=== PATIENT | male | born 1945 | race Caucasian/White ===

== ENCOUNTER 2021-09-16 05:13 | Inpatient (IN) ==
[2021-09-16] MEDS ORDERED: propofoL 200 MG/20 ML VIAL IV ONE (05:51)
[2021-09-16] MEDS ORDERED: LIDOCAINE 2% 5 ML VIAL ONE (05:51)
[2021-09-16] MEDS ORDERED: ONDANSETRON 4 MG/2 ML VIAL ONE (05:51)
[2021-09-16] MEDS ORDERED: MIDAZOLAM 2 MG/2 ML VIAL ONE (05:51)
[2021-09-16] MEDS ORDERED: fentaNYL 100 MCG/2 ML VIAL ONE ×3 (05:51→12:30)
[2021-09-16] MEDS ORDERED: ROCURONIUM 50 MG/5 ML VIAL IV ONE ×3 (05:58→10:12)
[2021-09-16] MEDS ORDERED: SEVOFLURANE 1 UNIT/15 MINUTE INH ONE ×10 (05:58→12:28)
[2021-09-16] MEDS ORDERED: cefTRIAXone 1,000 MG in SODIUM CHLORIDE 0.9% 100 ML IV ONE (06:00)
[2021-09-16] MEDS ORDERED: SODIUM PHOSPHATE ENEMA 133 ML BOTTLE RECTAL ONE (06:00)
[2021-09-16] MEDS ORDERED: ALVIMOPAN 12 MG CAPSULE PO ONE (06:00)
[2021-09-16] MEDS ORDERED: LACTATED RINGERS 1,000 ML IV SCH (07:00)
[2021-09-16] MEDS ORDERED: ALBUTEROL 2.5 MG/3 ML NEB RESP TX ONE (07:34)
[2021-09-16] MEDS ORDERED: FAMOTIDINE 20 MG/2 ML VIAL IV ONE (07:34)
[2021-09-16] MEDS ORDERED: ePHEDrine 50 MG/ML VIAL ONE (08:07)
[2021-09-16 08:35] LABS: Bacteria,Urine Occasional /HPF (Few); Bilirubin,Urine Negative (Negative); Blood, Urine Small mg/dL (Negative); Glucose,Urine (UA) Negative (Negative); Ketones,Urine Negative (Negative); Mucus,Urine Occasional /LPF (Occasional); Nitrite,Urine Negative (Negative); Protein,Urine Negative; RBC,Urine 9 /HPF (0-4); Squamous Epithelial Cell,Urine Occasional /HPF (0-10); Urine Appearance CLEAR (Clear); Urine Color Yellow (Yellow); Urine Specific Gravity 1.018 (1.001-1.035); Urine Urobilinogen < 2.0 EU/DL (<2.0)
[2021-09-16] MEDS ORDERED: ACETAMINOPHEN INJ 1,000 MG/100 ML VIAL IV ONE (09:40)
[2021-09-16] MEDS ORDERED: SUCCINYLCHOLINE 200 MG/10 ML VIAL ONE (09:40)
[2021-09-16] MEDS ORDERED: HYDROCORTISONE 100 MG VIAL ONE (09:40)
[2021-09-16] MEDS ORDERED: PHENYLEPHRINE 1 MG/10 ML SYRINGE IV ONE ×3 (09:41→12:28)
[2021-09-16] MEDS ORDERED: LACTATED RINGERS 1,000 ML IV ONE (10:37)
[2021-09-16] MEDS ORDERED: NEOSTIGMINE 10 MG/10 ML VIAL ONE (12:13)
[2021-09-16] MEDS ORDERED: ONDANSETRON 4 MG/2 ML VIAL IV PRN (12:26)
[2021-09-16] MEDS ORDERED: oxyCODONE/ACETAMINOPHEN 5-325 MG TABLET PO PRN (12:26)
[2021-09-16] MEDS ORDERED: SODIUM CHLORIDE 0.9% 1,000 ML IV SCH (12:30)
[2021-09-16] MEDS ORDERED: HYDROmorphone 2 MG/1 ML VIAL IV PRN (12:32)
[2021-09-16] MEDS: CARBIDOPA/LEVODOPA 25-100 MG TABLET PO SCH ×2 (15:07→18:24)
[2021-09-16] MEDS: OXYBUTYNIN XL 10 MG TABLET PO SCH (15:07)
[2021-09-16] MEDS ORDERED: SODIUM CHLORIDE 0.9% 1,000 ML IV ONE (17:30)
[2021-09-16] MEDS: CALCIUM (CARBONATE)/VITAMIN D 600 MG-400 UNIT TABLET PO SCH (18:24)
[2021-09-16] MEDS: Glycopyrrolate-Formoterol [Bevespi Aerosphere] 9-4.8 mcg Hfa Aer INH SCH (20:54)
[2021-09-16] MEDS: MONTELUKAST 10 MG TABLET PO SCH (20:54)
[2021-09-16] MEDS: ALVIMOPAN 12 MG CAPSULE PO SCH (20:54)
[2021-09-16] MEDS: SODIUM CHLORIDE 0.9% 1,000 ML IV SCH (22:10)
[2021-09-17 05:32] LABS: Basophils % 0.2 % (0.0-0.8); Hematocrit 36.6 VOL% (42.0-52.0); Hemoglobin 11.9 GM/DL (14.0-18.0); Immature Granulocytes % 0.4 %; Immature Granulocytes Absolute 0.05 #; Lymphocytes # 0.8 10*3/uL (1.4-4.0); Lymphocytes % 6.9 % (21.2-54.2); Mean Corpuscular HGB Conc 32.5 GM/DL (32-36); Mean Corpuscular Volume 106.4 FL (87-102); Mean Platelet Volume 10.4 FL (9.6-12.0); Monocytes % 10.2 % (1.7-12.7); Neutrophils % 82.3 % (38.7-73.9); Platelet Count 244 T/CUMM (130-400); Red Blood Count 3.44 MC/CUMM (3.8-5.5); Red Cell Distribution Width 12.7 % (9.3-17.3); White Blood Count 11.9 T/CUMM (4-12)
[2021-09-17] MEDS: LEVOTHYROXINE 75 MCG TABLET PO SCH (05:33)
[2021-09-17 05:44] LABS: Albumin 3.1 G/DL (3.4-5.0); Osmolality,Calculated 285.4 MOS/KG (273-304); Potassium 5.1 MMOL/L (3.5-5.1)
[2021-09-17 06:19] LABS: Band Neutrophils 6 % (0-10); Lymphocytes 5 % (20-55); Segmented Neutrophils 82 % (50-85); Total Cells Counted 100
[2021-09-17 06:20] LABS: Microcytosis 1+; Platelet Estimate Normal
[2021-09-17] MEDS ORDERED: predniSONE 5 MG TABLET PO SCH (09:00)
[2021-09-17] MEDS: OXYBUTYNIN XL 10 MG TABLET PO SCH (10:40)
[2021-09-17] MEDS: amLODIPine 5 MG TABLET PO SCH (10:40)
[2021-09-17] MEDS: ALVIMOPAN 12 MG CAPSULE PO SCH ×2 (10:40→21:38)
[2021-09-17] MEDS: CARBIDOPA/LEVODOPA 25-100 MG TABLET PO SCH ×3 (10:41→21:38)
[2021-09-17] MEDS: CALCIUM (CARBONATE)/VITAMIN D 600 MG-400 UNIT TABLET PO SCH ×2 (10:41→17:33)
[2021-09-17] MEDS: Glycopyrrolate-Formoterol [Bevespi Aerosphere] 9-4.8 mcg Hfa Aer INH SCH ×2 (10:52→21:40)
[2021-09-17] MEDS: RASAGILINE 0.5 MG TABLET PO SCH (10:57)
[2021-09-17] MEDS: ALBUTEROL/IPRATROPIUM 3 ML NEB RESP TX SCH ×4 (13:35→23:41)
[2021-09-17] MEDS: SODIUM CHLORIDE 0.9% 1,000 ML IV SCH ×2 (18:41→18:42)
[2021-09-17 21:28] LABS: Albumin 2.8 G/DL (3.4-5.0); Calcium 7.4 MG/DL (8.5-10.1); Osmolality,Calculated 293.1 MOS/KG (273-304); Potassium 5.4 MMOL/L (3.5-5.1)
[2021-09-17] MEDS: MONTELUKAST 10 MG TABLET PO SCH (21:38)
[2021-09-17] MEDS: SIMVASTATIN 20 MG TABLET PO SCH (21:38)
[2021-09-17] MEDS ORDERED: LORazepam 2 MG/1 ML VIAL IM PRN (23:15)
[2021-09-17] MEDS ORDERED: cefTRIAXone 1,000 MG in SODIUM CHLORIDE 0.9% 100 ML IV ONE (23:20)
[2021-09-18] MEDS: ACETAMINOPHEN 325 MG TABLET PO PRN (05:00)
[2021-09-18] MEDS: LEVOTHYROXINE 75 MCG TABLET PO SCH (05:29)
[2021-09-18 05:48] LABS: Osmolality,Calculated 286.7 MOS/KG (273-304); Potassium 4.7 MMOL/L (3.5-5.1)
[2021-09-18 05:50] LABS: Calcium 7.9 MG/DL (8.5-10.1); Osmolality,Calculated 288.5 MOS/KG (273-304); Potassium 4.8 MMOL/L (3.5-5.1)
[2021-09-18] MEDS: ALBUTEROL/IPRATROPIUM 3 ML NEB RESP TX SCH ×3 (07:20→19:53)
[2021-09-18] MEDS ORDERED: methylPREDNISolone SOD SUC 40 MG/1 ML VIAL IV ONE (08:30)
[2021-09-18] MEDS: ALVIMOPAN 12 MG CAPSULE PO SCH ×2 (10:01→21:37)
[2021-09-18] MEDS: chlordiazePOXIDE 10 MG CAPSULE PO SCH ×3 (10:01→21:37)
[2021-09-18] MEDS: OXYBUTYNIN XL 10 MG TABLET PO SCH (10:02)
[2021-09-18] MEDS: amLODIPine 5 MG TABLET PO SCH (10:02)
[2021-09-18] MEDS: CARBIDOPA/LEVODOPA 25-100 MG TABLET PO SCH ×3 (10:02→21:38)
[2021-09-18] MEDS: QUEtiapine 25 MG TABLET PO SCH ×2 (10:02→21:38)
[2021-09-18] MEDS: methylPREDNISolone SOD SUC 40 MG/1 ML VIAL IV SCH ×2 (10:02→21:40)
[2021-09-18] MEDS: CALCIUM (CARBONATE)/VITAMIN D 600 MG-400 UNIT TABLET PO SCH ×2 (10:02→18:38)
[2021-09-18] MEDS: RASAGILINE 0.5 MG TABLET PO SCH (10:03)
[2021-09-18] MEDS: cefTRIAXone 1,000 MG in SODIUM CHLORIDE 0.9% 100 ML IV SCH (10:03)
[2021-09-18] MEDS: Glycopyrrolate-Formoterol [Bevespi Aerosphere] 9-4.8 mcg Hfa Aer INH SCH ×2 (10:04→21:45)
[2021-09-18] MEDS ORDERED: INSULIN REGULAR 10 UNIT, CALCIUM GLUCONATE 1,000 MG in DEXTROSE 10% 250 ML IV PRN (13:47)
[2021-09-18] MEDS: SODIUM BICARB INJ 50 MEQ in SODIUM CHLORIDE 0.45% 1,000 ML IV SCH (18:39)
[2021-09-18] MEDS: SIMVASTATIN 20 MG TABLET PO SCH (21:38)
[2021-09-18] MEDS: MONTELUKAST 10 MG TABLET PO SCH (21:38)
[2021-09-19] MEDS: ALBUTEROL/IPRATROPIUM 3 ML NEB RESP TX SCH ×4 (00:52→19:00)
[2021-09-19 06:03] LABS: Hemoglobin 8.9 GM/DL (14.0-18.0); Immature Granulocytes % 0.9 %; Immature Granulocytes Absolute 0.09 #; Lymphocytes # 0.3 10*3/uL (1.4-4.0); Lymphocytes % 2.4 % (21.2-54.2); Mean Corpuscular HGB Conc 31.8 GM/DL (32-36); Mean Corpuscular Volume 108.5 FL (87-102); Mean Platelet Volume 10.4 FL (9.6-12.0); Monocytes % 5.4 % (1.7-12.7); Neutrophils % 91.3 % (38.7-73.9); Platelet Count 185 T/CUMM (130-400); Red Blood Count 2.58 MC/CUMM (3.8-5.5); Red Cell Distribution Width 12.8 % (9.3-17.3); White Blood Count 10.4 T/CUMM (4-12)
[2021-09-19 06:13] LABS: Alanine Aminotransferase < 6 U/L (16-61); Albumin 2.4 G/DL (3.4-5.0); Alkaline Phosphatase 48 U/L (45-117); Aspartate Amino Transferase 46 U/L (0-37); Bilirubin,Total < 0.39 MG/DL (0.20-1.00); Blood Urea Nitrogen 40 MG/DL (7-18); Calcium 8.4 MG/DL (8.5-10.1); Carbon Dioxide 21 MMOL/L (21-32); Estimated Glom Filtration Rate 15 ML/MIN; Glucose 108 MG/DL (74-106); Osmolality,Calculated 287.5 MOS/KG (273-304); Potassium 4.8 MMOL/L (3.5-5.1); Sodium 139 MMOL/L (136-145); Total Protein 5.9 G/DL (6.4-8.2)
[2021-09-19 06:33] LABS: Band Neutrophils 9 % (0-10); Lymphocytes 2 % (20-55); Platelet Estimate Normal; Segmented Neutrophils 84 % (50-85); Total Cells Counted 100
[2021-09-19 06:34] LABS: Anisocytosis Slight; Macrocytosis Slight
[2021-09-19] MEDS: LEVOTHYROXINE 75 MCG TABLET PO SCH (07:35)
[2021-09-19] MEDS: SODIUM CHLORIDE 0.9% 1,000 ML IV SCH (07:59)
[2021-09-19] MEDS: ALVIMOPAN 12 MG CAPSULE PO SCH ×2 (09:42→21:28)
[2021-09-19] MEDS: chlordiazePOXIDE 10 MG CAPSULE PO SCH ×3 (09:42→21:28)
[2021-09-19] MEDS: OXYBUTYNIN XL 15 MG TABLET PO SCH (09:42)
[2021-09-19] MEDS: CALCIUM (CARBONATE)/VITAMIN D 600 MG-400 UNIT TABLET PO SCH ×2 (09:43→17:54)
[2021-09-19] MEDS: amLODIPine 5 MG TABLET PO SCH (09:43)
[2021-09-19] MEDS: CARBIDOPA/LEVODOPA 25-100 MG TABLET PO SCH ×3 (09:43→21:29)
[2021-09-19] MEDS: methylPREDNISolone SOD SUC 40 MG/1 ML VIAL IV SCH ×2 (09:52→21:29)
[2021-09-19] MEDS: Glycopyrrolate-Formoterol [Bevespi Aerosphere] 9-4.8 mcg Hfa Aer INH SCH ×2 (09:53→21:30)
[2021-09-19] MEDS: RASAGILINE 0.5 MG TABLET PO SCH (09:53)
[2021-09-19] MEDS: QUEtiapine 25 MG TABLET PO SCH ×2 (09:55→21:29)
[2021-09-19] MEDS: SODIUM BICARB INJ 50 MEQ in SODIUM CHLORIDE 0.45% 1,000 ML IV SCH (13:40)
[2021-09-19] MEDS: cefTRIAXone 1,000 MG in SODIUM CHLORIDE 0.9% 100 ML IV SCH (13:44)
[2021-09-19] MEDS: MONTELUKAST 10 MG TABLET PO SCH (21:28)
[2021-09-19] MEDS: SIMVASTATIN 20 MG TABLET PO SCH (21:29)
[2021-09-20] MEDS: ALBUTEROL/IPRATROPIUM 3 ML NEB RESP TX SCH ×4 (00:01→19:28)
[2021-09-20] MEDS: SODIUM BICARB INJ 50 MEQ in SODIUM CHLORIDE 0.45% 1,000 ML IV SCH (06:20)
[2021-09-20] MEDS: LEVOTHYROXINE 75 MCG TABLET PO SCH (06:20)
[2021-09-20 07:06] LABS: Hematocrit 27.1 VOL% (42.0-52.0); Hemoglobin 8.7 GM/DL (14.0-18.0); Immature Granulocytes % 0.8 %; Immature Granulocytes Absolute 0.07 #; Lymphocytes # 0.2 10*3/uL (1.4-4.0); Lymphocytes % 2.5 % (21.2-54.2); Mean Corpuscular HGB Conc 32.1 GM/DL (32-36); Mean Corpuscular Volume 106.7 FL (87-102); Mean Platelet Volume 9.8 FL (9.6-12.0); Monocytes % 4.6 % (1.7-12.7); Neutrophils % 92.1 % (38.7-73.9); Platelet Count 230 T/CUMM (130-400); Red Blood Count 2.54 MC/CUMM (3.8-5.5); Red Cell Distribution Width 12.7 % (9.3-17.3); White Blood Count 9.1 T/CUMM (4-12)
[2021-09-20 07:29] LABS: Osmolality,Calculated 289.5 MOS/KG (273-304); Potassium 4.5 MMOL/L (3.5-5.1)
[2021-09-20 07:57] LABS: Alanine Aminotransferase 9 U/L (16-61); Albumin 2.4 G/DL (3.4-5.0); Alkaline Phosphatase 61 U/L (45-117); Aspartate Amino Transferase 40 U/L (0-37); Bilirubin,Total < 0.39 MG/DL (0.20-1.00); Blood Urea Nitrogen 38 MG/DL (7-18); Calcium 8.6 MG/DL (8.5-10.1); Carbon Dioxide 25 MMOL/L (21-32); Estimated Glom Filtration Rate 22 ML/MIN; Glucose 162 MG/DL (74-106); Osmolality,Calculated 295.1 MOS/KG (273-304); Potassium 4.7 MMOL/L (3.5-5.1); Sodium 142 MMOL/L (136-145); Total Protein 6.2 G/DL (6.4-8.2)
[2021-09-20 08:31] LABS: Anisocytosis 1+; Band Neutrophils 11 % (0-10); Lymphocytes 1 % (20-55); Macrocytosis 1+; Platelet Estimate Normal; Segmented Neutrophils 85 % (50-85); Total Cells Counted 100
[2021-09-20] MEDS: amLODIPine 5 MG TABLET PO SCH (10:11)
[2021-09-20] MEDS: ALVIMOPAN 12 MG CAPSULE PO SCH ×2 (10:11→21:23)
[2021-09-20] MEDS: OXYBUTYNIN XL 15 MG TABLET PO SCH (10:11)
[2021-09-20] MEDS: CALCIUM (CARBONATE)/VITAMIN D 600 MG-400 UNIT TABLET PO SCH ×3 (10:11→17:42)
[2021-09-20] MEDS: CARBIDOPA/LEVODOPA 25-100 MG TABLET PO SCH ×3 (10:11→21:24)
[2021-09-20] MEDS: chlordiazePOXIDE 10 MG CAPSULE PO SCH ×3 (10:11→21:23)
[2021-09-20] MEDS: methylPREDNISolone SOD SUC 40 MG/1 ML VIAL IV SCH ×2 (10:12→21:24)
[2021-09-20] MEDS: RASAGILINE 0.5 MG TABLET PO SCH (10:13)
[2021-09-20] MEDS: cefTRIAXone 1,000 MG in SODIUM CHLORIDE 0.9% 100 ML IV SCH (10:14)
[2021-09-20] MEDS: QUEtiapine 25 MG TABLET PO SCH ×2 (10:14→21:24)
[2021-09-20] MEDS: Glycopyrrolate-Formoterol [Bevespi Aerosphere] 9-4.8 mcg Hfa Aer INH SCH ×2 (10:14→21:24)
[2021-09-20] MEDS: SODIUM CHLORIDE 0.45% 1,000 ML IV SCH (21:22)
[2021-09-20] MEDS: SIMVASTATIN 20 MG TABLET PO SCH (21:23)
[2021-09-20] MEDS: MONTELUKAST 10 MG TABLET PO SCH (21:23)
[2021-09-21] MEDS: ALBUTEROL/IPRATROPIUM 3 ML NEB RESP TX SCH ×4 (00:31→20:55)
[2021-09-21] MEDS: LEVOTHYROXINE 75 MCG TABLET PO SCH (06:20)
[2021-09-21 07:05] LABS: Calcium 8.9 MG/DL (8.5-10.1); Osmolality,Calculated 294.3 MOS/KG (273-304); Potassium 4.8 MMOL/L (3.5-5.1)
[2021-09-21] MEDS: SODIUM BICARB INJ 50 MEQ in SODIUM CHLORIDE 0.45% 1,000 ML IV SCH (07:47)
[2021-09-21] MEDS: OXYBUTYNIN XL 15 MG TABLET PO SCH (08:46)
[2021-09-21] MEDS: ALVIMOPAN 12 MG CAPSULE PO SCH ×2 (08:46→21:13)
[2021-09-21] MEDS: chlordiazePOXIDE 10 MG CAPSULE PO SCH ×3 (08:46→21:13)
[2021-09-21] MEDS: CALCIUM (CARBONATE)/VITAMIN D 600 MG-400 UNIT TABLET PO SCH ×2 (08:46→16:24)
[2021-09-21] MEDS: amLODIPine 5 MG TABLET PO SCH (08:46)
[2021-09-21] MEDS: QUEtiapine 25 MG TABLET PO SCH ×2 (08:46→21:14)
[2021-09-21] MEDS: SODIUM CHLORIDE 0.45% 1,000 ML IV SCH ×3 (08:46→21:21)
[2021-09-21] MEDS: methylPREDNISolone SOD SUC 40 MG/1 ML VIAL IV SCH ×2 (08:47→21:14)
[2021-09-21] MEDS: RASAGILINE 0.5 MG TABLET PO SCH (08:48)
[2021-09-21] MEDS: Glycopyrrolate-Formoterol [Bevespi Aerosphere] 9-4.8 mcg Hfa Aer INH SCH ×2 (08:49→21:14)
[2021-09-21] MEDS: cefTRIAXone 1,000 MG in SODIUM CHLORIDE 0.9% 100 ML IV SCH (08:49)
[2021-09-21 09:25] LABS: HIV Antigen/Antibody Result Nonreactive (Nonreactive); Hepatitis B Surface Ag Quant < 0.10 Index; Hepatitis B Surface Ag Result Non-Reactive (NonReactive); Hepatitis C Virus Ab Quant 0.09 Index; Hepatitis C Virus Ab Result Non-Reactive (NonReactive)
[2021-09-21] MEDS: CARBIDOPA/LEVODOPA 25-100 MG TABLET PO SCH ×3 (09:52→21:13)
[2021-09-21] MEDS: POLYETHYLENE GLYCOL POWDER 17 GM PACK PO SCH (10:58)
[2021-09-21] MEDS: SIMVASTATIN 20 MG TABLET PO SCH (21:13)
[2021-09-21] MEDS: MONTELUKAST 10 MG TABLET PO SCH (21:13)
[2021-09-22] MEDS: ALBUTEROL/IPRATROPIUM 3 ML NEB RESP TX SCH ×5 (02:22→19:56)
[2021-09-22] MEDS: LEVOTHYROXINE 75 MCG TABLET PO SCH (05:12)
[2021-09-22 05:56] LABS: Calcium 8.9 MG/DL (8.5-10.1); Osmolality,Calculated 296.3 MOS/KG (273-304); Potassium 4.9 MMOL/L (3.5-5.1)
[2021-09-22] MEDS: SODIUM CHLORIDE 0.45% 1,000 ML IV SCH ×3 (06:22→15:27)
[2021-09-22] MEDS: cefTRIAXone 1,000 MG in SODIUM CHLORIDE 0.9% 100 ML IV SCH (08:43)
[2021-09-22] MEDS: methylPREDNISolone SOD SUC 40 MG/1 ML VIAL IV SCH (08:44)
[2021-09-22] MEDS: OXYBUTYNIN XL 15 MG TABLET PO SCH (08:44)
[2021-09-22] MEDS: RASAGILINE 0.5 MG TABLET PO SCH (08:45)
[2021-09-22] MEDS: ALVIMOPAN 12 MG CAPSULE PO SCH ×2 (08:45→21:34)
[2021-09-22] MEDS: CALCIUM (CARBONATE)/VITAMIN D 600 MG-400 UNIT TABLET PO SCH ×2 (08:46→16:02)
[2021-09-22] MEDS: amLODIPine 5 MG TABLET PO SCH (08:46)
[2021-09-22] MEDS: CARBIDOPA/LEVODOPA 25-100 MG TABLET PO SCH ×5 (08:46→18:09)
[2021-09-22] MEDS: QUEtiapine 25 MG TABLET PO SCH (08:46)
[2021-09-22] MEDS: chlordiazePOXIDE 10 MG CAPSULE PO SCH ×2 (08:46→21:34)
[2021-09-22] MEDS: POLYETHYLENE GLYCOL POWDER 17 GM PACK PO SCH ×2 (08:47→21:34)
[2021-09-22] MEDS: Glycopyrrolate-Formoterol [Bevespi Aerosphere] 9-4.8 mcg Hfa Aer INH SCH ×2 (08:48→21:34)
[2021-09-22] MEDS ORDERED: BISACODYL 5 MG TABLET PO ONE (10:00)
[2021-09-22] MEDS: SIMVASTATIN 20 MG TABLET PO SCH (21:34)
[2021-09-22] MEDS: MONTELUKAST 10 MG TABLET PO SCH (21:34)
[2021-09-23] MEDS: ALBUTEROL/IPRATROPIUM 3 ML NEB RESP TX SCH ×4 (00:40→19:15)
[2021-09-23] MEDS: LEVOTHYROXINE 75 MCG TABLET PO SCH (05:39)
[2021-09-23] MEDS: SODIUM CHLORIDE 0.45% 1,000 ML IV SCH ×2 (05:39→20:52)
[2021-09-23 05:43] LABS: Basophils % 0.3 % (0.0-0.8); Hematocrit 28.5 VOL% (42.0-52.0); Hemoglobin 9.1 GM/DL (14.0-18.0); Immature Granulocytes % 2.4 %; Immature Granulocytes Absolute 0.25 #; Lymphocytes # 1.5 10*3/uL (1.4-4.0); Lymphocytes % 14.2 % (21.2-54.2); Mean Corpuscular HGB Conc 31.9 GM/DL (32-36); Mean Corpuscular Volume 107.5 FL (87-102); Mean Platelet Volume 10.1 FL (9.6-12.0); Monocytes % 11.8 % (1.7-12.7); NRBC # 0.02 10*3/uL; Neutrophils % 71.3 % (38.7-73.9); Platelet Count 299 T/CUMM (130-400); Red Blood Count 2.65 MC/CUMM (3.8-5.5); Red Cell Distribution Width 12.6 % (9.3-17.3); White Blood Count 10.2 T/CUMM (4-12)
[2021-09-23 06:02] LABS: Calcium 9.5 MG/DL (8.5-10.1); Osmolality,Calculated 288.4 MOS/KG (273-304); Potassium 4.1 MMOL/L (3.5-5.1)
[2021-09-23] MEDS ORDERED: BISACODYL 10 MG SUPP RECTAL ONE (07:45)
[2021-09-23] MEDS ORDERED: methylPREDNISolone SOD SUC 40 MG/1 ML VIAL IV SCH (09:00)
[2021-09-23] MEDS: POLYETHYLENE GLYCOL POWDER 17 GM PACK PO SCH ×2 (09:33→20:52)
[2021-09-23] MEDS: CALCIUM (CARBONATE)/VITAMIN D 600 MG-400 UNIT TABLET PO SCH ×2 (09:36→16:20)
[2021-09-23] MEDS: amLODIPine 5 MG TABLET PO SCH (09:38)
[2021-09-23] MEDS: RASAGILINE 0.5 MG TABLET PO SCH (09:39)
[2021-09-23] MEDS: CEFUROXIME 250 MG TABLET PO SCH (09:40)
[2021-09-23] MEDS: OXYBUTYNIN XL 15 MG TABLET PO SCH (09:41)
[2021-09-23] MEDS: ALVIMOPAN 12 MG CAPSULE PO SCH ×2 (09:42→20:51)
[2021-09-23] MEDS: chlordiazePOXIDE 10 MG CAPSULE PO SCH (09:43)
[2021-09-23] MEDS: Glycopyrrolate-Formoterol [Bevespi Aerosphere] 9-4.8 mcg Hfa Aer INH SCH ×2 (09:52→20:52)
[2021-09-23] MEDS: CARBIDOPA/LEVODOPA 25-100 MG TABLET PO SCH ×3 (10:59→20:51)
[2021-09-23] MEDS: QUEtiapine 25 MG TABLET PO SCH (16:10)
[2021-09-23] MEDS: MONTELUKAST 10 MG TABLET PO SCH (20:51)
[2021-09-23] MEDS: SIMVASTATIN 20 MG TABLET PO SCH (20:51)
[2021-09-24] MEDS: ALBUTEROL/IPRATROPIUM 3 ML NEB RESP TX SCH ×4 (00:55→19:20)
[2021-09-24] MEDS: ACETAMINOPHEN 325 MG TABLET PO PRN (05:51)
[2021-09-24] MEDS: LEVOTHYROXINE 75 MCG TABLET PO SCH (05:51)
[2021-09-24 07:06] LABS: Osmolality,Calculated 285.5 MOS/KG (273-304); Potassium 4.6 MMOL/L (3.5-5.1)
[2021-09-24] MEDS: amLODIPine 5 MG TABLET PO SCH (09:59)
[2021-09-24] MEDS: chlordiazePOXIDE 10 MG CAPSULE PO SCH (09:59)
[2021-09-24] MEDS: OXYBUTYNIN XL 15 MG TABLET PO SCH (09:59)
[2021-09-24] MEDS: RASAGILINE 0.5 MG TABLET PO SCH (09:59)
[2021-09-24] MEDS: CEFUROXIME 250 MG TABLET PO SCH ×2 (09:59→10:00)
[2021-09-24] MEDS: CALCIUM (CARBONATE)/VITAMIN D 600 MG-400 UNIT TABLET PO SCH ×2 (09:59→16:38)
[2021-09-24] MEDS: CARBIDOPA/LEVODOPA 25-100 MG TABLET PO SCH ×3 (10:00→21:38)
[2021-09-24] MEDS: Glycopyrrolate-Formoterol [Bevespi Aerosphere] 9-4.8 mcg Hfa Aer INH SCH ×2 (10:01→21:40)
[2021-09-24] MEDS: POLYETHYLENE GLYCOL POWDER 17 GM PACK PO SCH ×2 (10:04→21:39)
[2021-09-24] MEDS: QUEtiapine 25 MG TABLET PO SCH ×2 (18:37→21:39)
[2021-09-24] MEDS: SIMVASTATIN 20 MG TABLET PO SCH (21:38)
[2021-09-24] MEDS: MONTELUKAST 10 MG TABLET PO SCH (21:38)
[2021-09-25] MEDS: ALBUTEROL/IPRATROPIUM 3 ML NEB RESP TX SCH ×4 (00:38→20:26)
[2021-09-25] MEDS: SODIUM CHLORIDE 0.45% 1,000 ML IV SCH ×2 (04:32→14:23)
[2021-09-25] MEDS: LEVOTHYROXINE 75 MCG TABLET PO SCH (05:20)
[2021-09-25] MEDS: RASAGILINE 0.5 MG TABLET PO SCH (08:35)
[2021-09-25] MEDS: OXYBUTYNIN XL 15 MG TABLET PO SCH (08:35)
[2021-09-25] MEDS: amLODIPine 5 MG TABLET PO SCH (08:35)
[2021-09-25] MEDS: CEFUROXIME 250 MG TABLET PO SCH (08:35)
[2021-09-25] MEDS: predniSONE 5 MG TABLET PO SCH (08:35)
[2021-09-25] MEDS: chlordiazePOXIDE 10 MG CAPSULE PO SCH (08:36)
[2021-09-25] MEDS: CALCIUM (CARBONATE)/VITAMIN D 600 MG-400 UNIT TABLET PO SCH ×2 (08:36→17:22)
[2021-09-25] MEDS: POLYETHYLENE GLYCOL POWDER 17 GM PACK PO SCH ×2 (08:36→20:56)
[2021-09-25 09:37] LABS: Basophils % 0.2 % (0.0-0.8); Hemoglobin 10.3 GM/DL (14.0-18.0); Immature Granulocytes % 1.2 %; Immature Granulocytes Absolute 0.21 #; Lymphocytes # 0.6 10*3/uL (1.4-4.0); Lymphocytes % 3.4 % (21.2-54.2); Mean Corpuscular HGB Conc 32.2 GM/DL (32-36); Mean Corpuscular Volume 104.2 FL (87-102); Mean Platelet Volume 9.4 FL (9.6-12.0); Neutrophils % 89.2 % (38.7-73.9); Platelet Count 388 T/CUMM (130-400); Red Blood Count 3.07 MC/CUMM (3.8-5.5); Red Cell Distribution Width 12.4 % (9.3-17.3); White Blood Count 17.7 T/CUMM (4-12)
[2021-09-25 09:54] LABS: Calcium 9.8 MG/DL (8.5-10.1); Osmolality,Calculated 281.1 MOS/KG (273-304); Potassium 4.7 MMOL/L (3.5-5.1)
[2021-09-25 09:56] LABS: Hypochromia 1+; Lymphocytes 4 % (20-55); Microcytosis 1+; Platelet Estimate Adequate; Segmented Neutrophils 90 % (50-85); Total Cells Counted 100
[2021-09-25] MEDS: CARBIDOPA/LEVODOPA 25-100 MG TABLET PO SCH ×3 (10:07→20:56)
[2021-09-25] MEDS: Glycopyrrolate-Formoterol [Bevespi Aerosphere] 9-4.8 mcg Hfa Aer INH SCH ×2 (10:10→23:08)
[2021-09-25] MEDS: ACETAMINOPHEN 325 MG TABLET PO PRN (11:39)
[2021-09-25] MEDS ORDERED: BISACODYL 10 MG SUPP RECTAL PRN (15:13)
[2021-09-25] MEDS: ALBUMIN 25% 12.5 GM/50 ML VIAL IV SCH (17:22)
[2021-09-25] MEDS: SIMVASTATIN 20 MG TABLET PO SCH (20:55)
[2021-09-25] MEDS: QUEtiapine 25 MG TABLET PO SCH (20:55)
[2021-09-25] MEDS: MONTELUKAST 10 MG TABLET PO SCH (20:55)
[2021-09-26] MEDS: ALBUTEROL/IPRATROPIUM 3 ML NEB RESP TX SCH ×4 (00:10→19:04)
[2021-09-26] MEDS: ALBUMIN 25% 12.5 GM/50 ML VIAL IV SCH ×3 (00:47→17:07)
[2021-09-26 04:34] LABS: Alanine Aminotransferase < 6 U/L (16-61); Alkaline Phosphatase 46 U/L (45-117); Aspartate Amino Transferase 10 U/L (0-37); Bilirubin,Total < 0.39 MG/DL (0.20-1.00); Blood Urea Nitrogen 30 MG/DL (7-18); Calcium 9.8 MG/DL (8.5-10.1); Carbon Dioxide 33 MMOL/L (21-32); Estimated Glom Filtration Rate 32 ML/MIN; Glucose 107 MG/DL (74-106); Osmolality,Calculated 280.7 MOS/KG (273-304); Potassium 3.8 MMOL/L (3.5-5.1); Sodium 138 MMOL/L (136-145); Total Protein 5.5 G/DL (6.4-8.2)
[2021-09-26] MEDS: SODIUM CHLORIDE 0.45% 1,000 ML IV SCH (04:44)
[2021-09-26 05:02] LABS: Calcium 9.6 MG/DL (8.5-10.1); Osmolality,Calculated 280.7 MOS/KG (273-304); Potassium 3.8 MMOL/L (3.5-5.1)
[2021-09-26] MEDS: LEVOTHYROXINE 75 MCG TABLET PO SCH (06:04)
[2021-09-26] MEDS: CEFUROXIME 250 MG TABLET PO SCH (09:19)
[2021-09-26] MEDS: amLODIPine 5 MG TABLET PO SCH (09:19)
[2021-09-26] MEDS: CARBIDOPA/LEVODOPA 25-100 MG TABLET PO SCH ×3 (09:19→21:48)
[2021-09-26] MEDS: CALCIUM (CARBONATE)/VITAMIN D 600 MG-400 UNIT TABLET PO SCH ×2 (09:19→17:08)
[2021-09-26] MEDS: predniSONE 5 MG TABLET PO SCH (09:19)
[2021-09-26] MEDS: POLYETHYLENE GLYCOL POWDER 17 GM PACK PO SCH ×2 (09:20→21:49)
[2021-09-26] MEDS: Glycopyrrolate-Formoterol [Bevespi Aerosphere] 9-4.8 mcg Hfa Aer INH SCH ×2 (10:00→21:50)
[2021-09-26] MEDS: RASAGILINE 0.5 MG TABLET PO SCH (10:00)
[2021-09-26] MEDS: OXYBUTYNIN XL 15 MG TABLET PO SCH (10:00)
[2021-09-26] MEDS: SIMVASTATIN 20 MG TABLET PO SCH (21:48)
[2021-09-26] MEDS: MONTELUKAST 10 MG TABLET PO SCH (21:48)
[2021-09-26] MEDS: QUEtiapine 25 MG TABLET PO SCH (21:49)
[2021-09-27] MEDS: ALBUTEROL/IPRATROPIUM 3 ML NEB RESP TX SCH ×4 (00:22→19:16)
[2021-09-27] MEDS: ALBUMIN 25% 12.5 GM/50 ML VIAL IV SCH ×2 (00:31→18:37)
[2021-09-27 06:06] LABS: Calcium 8.9 MG/DL (8.5-10.1); Osmolality,Calculated 290.8 MOS/KG (273-304); Potassium 3.9 MMOL/L (3.5-5.1)
[2021-09-27] MEDS: LEVOTHYROXINE 75 MCG TABLET PO SCH (06:10)
[2021-09-27] MEDS: CALCIUM (CARBONATE)/VITAMIN D 600 MG-400 UNIT TABLET PO SCH ×2 (09:42→17:30)
[2021-09-27] MEDS: OXYBUTYNIN XL 15 MG TABLET PO SCH (09:42)
[2021-09-27] MEDS: POLYETHYLENE GLYCOL POWDER 17 GM PACK PO SCH ×2 (09:43→20:37)
[2021-09-27] MEDS: CEFUROXIME 250 MG TABLET PO SCH (09:43)
[2021-09-27] MEDS: amLODIPine 5 MG TABLET PO SCH (09:43)
[2021-09-27] MEDS: RASAGILINE 0.5 MG TABLET PO SCH (09:43)
[2021-09-27] MEDS: CARBIDOPA/LEVODOPA 25-100 MG TABLET PO SCH ×3 (09:43→20:36)
[2021-09-27] MEDS: predniSONE 5 MG TABLET PO SCH (09:43)
[2021-09-27] MEDS: Glycopyrrolate-Formoterol [Bevespi Aerosphere] 9-4.8 mcg Hfa Aer INH SCH ×2 (09:43→20:37)
[2021-09-27] MEDS ORDERED: ALBUMIN 25% 12.5 GM/50 ML VIAL IV SCH (10:00)
[2021-09-27] MEDS: DIAZEPAM 2 MG TABLET PO PRN (20:36)
[2021-09-27] MEDS: SIMVASTATIN 20 MG TABLET PO SCH (20:36)
[2021-09-27] MEDS: MONTELUKAST 10 MG TABLET PO SCH (20:36)
[2021-09-28] MEDS: ALBUTEROL/IPRATROPIUM 3 ML NEB RESP TX SCH ×4 (01:41→19:15)
[2021-09-28 06:16] LABS: Calcium 8.2 MG/DL (8.5-10.1); Osmolality,Calculated 283.3 MOS/KG (273-304); Potassium 4.1 MMOL/L (3.5-5.1)
[2021-09-28] MEDS: LEVOTHYROXINE 75 MCG TABLET PO SCH (06:25)
[2021-09-28] MEDS: CALCIUM (CARBONATE)/VITAMIN D 600 MG-400 UNIT TABLET PO SCH ×2 (09:04→16:49)
[2021-09-28] MEDS: CEFUROXIME 250 MG TABLET PO SCH (09:04)
[2021-09-28] MEDS: CARBIDOPA/LEVODOPA 25-100 MG TABLET PO SCH ×3 (09:05→18:48)
[2021-09-28] MEDS: amLODIPine 5 MG TABLET PO SCH (09:05)
[2021-09-28] MEDS: predniSONE 5 MG TABLET PO SCH (09:05)
[2021-09-28] MEDS: OXYBUTYNIN XL 15 MG TABLET PO SCH (09:05)
[2021-09-28] MEDS: RASAGILINE 0.5 MG TABLET PO SCH (09:05)
[2021-09-28] MEDS: Glycopyrrolate-Formoterol [Bevespi Aerosphere] 9-4.8 mcg Hfa Aer INH SCH ×2 (09:07→20:58)
[2021-09-28] MEDS: POLYETHYLENE GLYCOL POWDER 17 GM PACK PO SCH ×2 (09:07→20:58)
[2021-09-28] MEDS: DIAZEPAM 2 MG TABLET PO PRN (20:58)
[2021-09-28] MEDS: MONTELUKAST 10 MG TABLET PO SCH (20:58)
[2021-09-28] MEDS: SIMVASTATIN 20 MG TABLET PO SCH (20:58)
[2021-09-29] MEDS: ALBUTEROL/IPRATROPIUM 3 ML NEB RESP TX SCH ×4 (01:13→20:14)
[2021-09-29] MEDS: LEVOTHYROXINE 75 MCG TABLET PO SCH (05:25)
[2021-09-29] MEDS: CALCIUM (CARBONATE)/VITAMIN D 600 MG-400 UNIT TABLET PO SCH ×2 (09:12→16:07)
[2021-09-29] MEDS: CARBIDOPA/LEVODOPA 25-100 MG TABLET PO SCH ×3 (09:13→18:43)
[2021-09-29] MEDS: RASAGILINE 0.5 MG TABLET PO SCH (09:13)
[2021-09-29] MEDS: OXYBUTYNIN XL 15 MG TABLET PO SCH (09:13)
[2021-09-29] MEDS: amLODIPine 5 MG TABLET PO SCH (09:13)
[2021-09-29] MEDS: predniSONE 5 MG TABLET PO SCH (09:13)
[2021-09-29] MEDS: CEFUROXIME 250 MG TABLET PO SCH (09:13)
[2021-09-29] MEDS: POLYETHYLENE GLYCOL POWDER 17 GM PACK PO SCH (09:16)
[2021-09-29] MEDS: Glycopyrrolate-Formoterol [Bevespi Aerosphere] 9-4.8 mcg Hfa Aer INH SCH ×2 (09:16→21:04)
[2021-09-29 11:39] LABS: Calcium 9.5 MG/DL (8.5-10.1); Osmolality,Calculated 289.1 MOS/KG (273-304); Potassium 4.5 MMOL/L (3.5-5.1)
[2021-09-29] MEDS: SODIUM CHLORIDE 0.45% 1,000 ML IV SCH (16:07)
[2021-09-29] MEDS: SIMVASTATIN 20 MG TABLET PO SCH (21:04)
[2021-09-29] MEDS: DIAZEPAM 2 MG TABLET PO PRN (21:04)
[2021-09-29] MEDS: MONTELUKAST 10 MG TABLET PO SCH (21:04)
[2021-09-30] MEDS: ALBUTEROL/IPRATROPIUM 3 ML NEB RESP TX SCH ×2 (01:17→07:30)
[2021-09-30] MEDS: LEVOTHYROXINE 75 MCG TABLET PO SCH (05:35)
[2021-09-30 05:55] LABS: Osmolality,Calculated 283.5 MOS/KG (273-304); Potassium 4.1 MMOL/L (3.5-5.1)
[2021-09-30 07:31] VITALS: BP 143/68
[2021-09-30] MEDS: OXYBUTYNIN XL 15 MG TABLET PO SCH (08:00)
[2021-09-30] MEDS: CEFUROXIME 250 MG TABLET PO SCH (08:00)
[2021-09-30] MEDS: amLODIPine 5 MG TABLET PO SCH (08:00)
[2021-09-30] MEDS: CALCIUM (CARBONATE)/VITAMIN D 600 MG-400 UNIT TABLET PO SCH (08:00)
[2021-09-30] MEDS: Glycopyrrolate-Formoterol [Bevespi Aerosphere] 9-4.8 mcg Hfa Aer INH SCH (08:02)
[2021-09-30] MEDS: RASAGILINE 0.5 MG TABLET PO SCH (08:02)
[2021-09-30] MEDS: predniSONE 5 MG TABLET PO SCH (08:02)
[2021-09-30] MEDS: CARBIDOPA/LEVODOPA 25-100 MG TABLET PO SCH (10:18)
[2021-09-30] MEDS: SODIUM CHLORIDE 0.45% 1,000 ML IV SCH (11:49)
[2021-10-08] MEDS ORDERED: BENRALIZUMAB 30 MG/ML SUBCUT SCH (09:00)
[2021-10-08] MEDS ORDERED: AUTO INJECTOR SUBCUT SCH (09:00)
== END 2021-09-30 12:19 | disposition swing bed (61) | DRG 707 ==
LOC: N.OR 05:13 → N.SDSINP 05:14 → N.3E 14:02
PROVIDERS: ADMIT Urology; ATTEND Urology